=== PATIENT | female | born 1985 | race Caucasian/White ===

== ENCOUNTER 2016-09-17 06:42 | Inpatient (IN) | payer OTHER ==
--- NOTE | 2016-09-17 06:57 | ERNOTE ---
<Susan Bernstein - Last Filed: 09/17/16 07:54> Abdominal HPI - Narrative Date of Service: 09/17/16 - General Chief Complaint: Abdominal Pain Time Seen by Provider: 09/17/16 06:56 Source: patient Exam Limitations: no limitations - Immun/Allergies/Home Medications Immunizatons: IMMUNIZATION HX Immunizations Up to Date Yes History of Influenza Vaccine No Allergies/Adverse Reactions: Allergies metoclopramide [From Reglan] Allergy (Severe, Verified 09/17/16 06:50) Other - History of Present Illness Narrative: Here for left flank pain for 8 hours. also has had nausea and vomiting. Has not taken any meds. also feels nauseated. Denies fevers, chills or dysuria Timing: constant, getting worse Review of Systems - Review of Systems Constitutional: Present: no symptoms reported EYE: Present: no symptoms reported ENT: Present: no symptoms reported Respiratory: Present: no symptoms reported Cardiology: Present: no symptoms reported Gastrointestinal/Abdominal: Present: See HPI Genitourinary: Present: See HPI Musculoskeletal: Present: See HPI - Patient's Past Medical History Patient History - Surgical Procedures: - Social History Smoking Status: Current every day smoker Have you smoked in the past 12 months: Yes - Immunizations Immunizations Up to Date: Yes History of Influenza Vaccine: No Physical Exam - Physical Exam General Appearance: Present: wd/wn, alert, moderate distress - secondary to pain Eye Exam: Normal inspection: bilateral, PERRL: bilateral, EOMI: bilateral Ears, Nose, Throat: Present: normal ENT inspection Neck: Present: normal inspection, nontender, supple Respiratory: Present: no respiratory distress, normal breath sounds, chest nontender, lungs clear Cardiovascular/Chest: Present: regular rate, rhythm, no murmur Back Exam: Present: normal inspection, CVA tenderness (L) Neurological Exam: Present: alert, oriented, normal mood/affect, no motor/ sensory deficits Skin Exam: Present: normal color, warm/dry ED Progress - Vital Signs Vital Signs: Vital Signs 09/17/16 06:47 Temperature 36.9 C Pulse Rate 76 Respiratory 16 Rate Blood Pressure 118/84 O2 Sat by Pulse 97 Oximetry - Progress/Reassessment Chief Complaint: Abdominal Pain - Transfer of Care Physician Sign Out: Susan Bernstein Receiving Physician: Karson Quintana Pending Results: CT/MRI results, Labs Departure - Departure Clinical Impression: Flank pain, Pancreatitis Disposition: [facility] Condition: Fair <Karson Quintana - Last Filed: 09/17/16 08:53> Abdominal HPI - Immun/Allergies/Home Medications Immunizatons: IMMUNIZATION HX Immunizations Up to Date Yes History of Influenza Vaccine No ED Progress - Results and Orders Patient's Lab Results:: I have reviewed the patient's lab results. - Vital Signs Patient's Vital Signs:: I have reviewed the patient's vital signs. Vital Signs: Vital Signs 09/17/16 09/17/16 09/17/16 06:47 07:38 08:27 Temperature 36.9 C Pulse Rate 76 57 L 52 L Respiratory 16 20 16 Rate Blood Pressure 118/84 127/81 107/53 O2 Sat by Pulse 97 98 100 Oximetry - CT/Ultrasound CT/Ultrasound Narrative: I reviewed CT report, pancreatitis. D/W Hospitalist who will admit. Lab is diluting her lipase.
[2016-09-17] MEDS ORDERED: ONDANSETRON HCL/PF 2 MG/ML VIAL IV ONE (06:58)
[2016-09-17] MEDS ORDERED: HYDROmorphone HCL 1 MG/ML DISP.SYRIN IV ONE ×3 (06:58→09:04)
[2016-09-17] MEDS ORDERED: HYDROmorphone HCL 1 MG/ML DISP.SYRIN ONE ×3 (07:03→09:07)
[2016-09-17] MEDS ORDERED: ONDANSETRON HCL/PF 2 MG/ML VIAL ONE (07:03)
[2016-09-17] MEDS ORDERED: NORMAL SALINE 1,000 ML IV ONE ×2 (07:07→08:51)
[2016-09-17 07:13] LABS: Hemoglobin 14.3 gm/dL (12.5-16.0); Mean Cell Volume 90.1 fl (78-100); Mean Corpuscular Hemoglobin 31.4 pg (27-31); Mean Corpuscular Hgb Conc 34.9 g/dl (32-36); Mean Platelet Volume 10.4 fl (6.0-9.5); Neutrophil # 6.4 K/mm3 (1.3-6.0); Neutrophil % 66.2 % (42-75.0); Platelet Count 233 K/mm3 (150-450); Red Blood Count 4.55 M/mm3 (4.2-5.4); Red Cell Distribution Width 12.4 % (11.5-14.0); White Blood Count 9.7 K/mm3 (4.0-10.5)
[2016-09-17 07:27] LABS: Albumin * 3.7 gm/dl (3.4-5.0); Anion Gap 12.3 mmol/L (6.8-13.8); Bilirubin, Total 0.4 mg/dL (0.0-1.1); Calcium * 9.1 mg/dL (7.9-10.9); Potassium 4.3 mmol/L (3.4-4.6); Total Protein 7.2 gm/dL (6.2-8.2)
[2016-09-17] MEDS ORDERED: KETOROLAC TROMETHAMINE 30 MG/ML VIAL IV ONE (07:40)
[2016-09-17] MEDS ORDERED: KETOROLAC TROMETHAMINE 30 MG/ML VIAL ONE (07:44)
[2016-09-17 08:41] LABS: Amylase * 456 U/L (25-115)
[2016-09-17 08:55] LABS: Lipase 4134 U/L (73-393)
--- OUTSIDE RECORDS SUMMARY | 2016-09-17 09:02 | XMS REPORT | Continuity of Care Document ---
:1985 Author Organization [facility] ([facility]) Address [address] [place] [address] Phone [phone] Care Team Providers Name Role Phone Provider, No-Primary Care Primary Care Provider Unavailable Source Comments This disclosure is being made pursuant to the Care Everywhere program, applicable federal and state laws, and may not contain all informaitonavailable regarding this patient.[facility] ([facility]) Active Allergies and Adverse Reactions Allergen Noted Date Severity Reactions Comments Metoclopramide OTHER dystonic reaction - Aka - Reglan Current Medications Prescription Sig. Disp. Refills Start Date End Date Status VITS Take 1 Tab by mouth Active W-CA,FE,FA,<1MG, daily. ( VITAMIN PO) norethindrone Take 1 Tab by mouth 84 Tab 4 10/21/2012 Active (NOR-Q.D.) 0.35 mg daily. Indications: tablet CONTRACEPTION Active Problems Problem Noted Date Migraine 03/12/2013 Morbid obesity- growth scans q 4wks 10/13/2012 Hx of section 10/02/2012 Overview: - Emergent C/S at 29 weeks for NRFS - Plans for TOLAC this . Consent signed at 28 week appointment. Ankle edema - moderate but not extending cephalad 09/05/2012 Overview: - Compression stockings recommended. - Patient experienced this in last Gestational hypertension 09/05/2012 Overview: - Need to rule out pre-eclampsia given elevated BP, new onset proteinuria per urine dip, nausea/epigastric pain at 31 wks - off to LDR for serial BPs, 24 hour urine collection, monitoring - Patient states BPs never elevated outside of . Elevated BPs on and 07/28/12 - Repeat HELLP labs wnl 09/05, repeat 24-hour urine returned 09/07 and was 50 mg but total volume only 450 mL. - Growth scan from 28 weeks with EFW 1202 g (40%ile). q4 week growth scans given morbid obesity/ gHTN Resolved Problems Problem Noted Date Resolved Date S/P repeat low transverse section 10/18/2012 10/24/2012 Preeclampsia, severe 10/17/2012 10/24/2012 Decreased movement- at 31 wks. Bedside doppler 131bpm. 10/13/201210/17 Overview: NST performed in clinic- results pending Hx of severe pre-eclampsia, oligohydramnios in previous 06/01/2012 10/24/2012 Overview: -PLTCS at 29wks -Pt leaning toward . Counseled regarding risks. Consent to be signed at 28 weeks. Headaches with visual changes 06/01/2012 09/05/2012 Overview: -Previous migraines -Outpatient neurology consult made but patient no-showed -Rx for phenergan 06/01/2011 -ACEVEDO's improved at 16 week visit. Pt thinks may be due to old vision prescription. To see eye doctor locally. 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/01/2012 Overview: Treated with Zoloft - increased 04/27/2010 to 100mg/day Severe preeclampsia, IUGR, oligohydramnios, intermittent AEDF 02/23/2010 11/26/2009 04/28/2010 Rh negative status during 11/26/2009 04/28/2010 Cervicalgia 07/07/2007 11/26/2009 Abdominal pain, unspecified site 03/08/2006 11/26/2009 Sprain of ankle, unspecified site 02/22/2005 11/26/2009 Immunizations Name Dates Previously Given Next Due Rho (D) Immune Globulin, IM (Rhogam) 10/17/2012,09/28/2012,02/09/2010 Tdap 09/28/2012 Social History Tobacco Use Types Packs/Day Years Used Date Former Smoker 0.5 4 Smokeless Tobacco: Never Used Tobacco Cessation:Counseling Given: Yes Comments:1/2 ppd Alcohol Use Drinks/Week oz/Week Comments No last drink about 1 month ago Last Filed Vital Signs Vital Sign Reading Time Taken Blood Pressure 106/78 03/12/2013 2:45 PM CDT Pulse 92 03/12/2013 2:45 PM CDT Temperature 36.9 C (98.4 F) 03/12/2013 2:45 PM CDT Respiratory Rate 16 03/12/2013 2:45 PM CDT Height 1.74 m (5' 8.5") 03/12/2013 2:45 PM CDT Weight 114.715 kg (252 lb 14.4 oz) 03/12/2013 2:45 PM CDT Body Mass Index 37.89 03/12/2013 2:45 PM CDT Oxygen Saturation 97% 10/18/2012 8:46 PM CDT Plan of Care Health Maintenance Due Date Last Done Comments Hepatitis B Vaccine (1 of 3 - Primary 1987 Series) Lipid Disorder Screening 2005 MMR Vaccine 2005 Cervical Cancer Screening 12/09/2015 12/08/2012, 09/24/2009 Influenza Vaccine: Seasonal (#1) 12/15/2015 Td Vaccine 09/28/2022 09/28/2012 Tdap Vaccine Completed 09/28/2012 Results from Last 3 Months Not on file
--- OUTSIDE RECORDS SUMMARY | 2016-09-17 09:03 | XMS REPORT | Continuity of Care Document ---
:1985 Author Organization [facility] ([facility]) Address [address] [place] [address] Phone [phone] Care Team Providers Name Role Phone Provider, No-Primary Care Primary Care Provider Unavailable Source Comments This disclosure is being made pursuant to the Care Everywhere program, applicable federal and state laws, and may not contain all informaitonavailable regarding this patient.[facility] ([facility]) Active Allergies and Adverse Reactions Allergen [...]
[2016-09-17] MEDS: ONDANSETRON HCL/PF 2 MG/ML VIAL IV PRN ×2 (09:34→15:04)
[2016-09-17] MEDS: NORMAL SALINE 1,000 ML IV PRN ×4 (10:29→22:45)
[2016-09-17] MEDS: HYDROmorphone HCL 1 MG/ML DISP.SYRIN IV PRN ×7 (10:31→22:53)
[2016-09-17] MEDS ORDERED: PROMETHAZINE HCL 25 MG in DEXTROSE 5 % IN WATER 50 ML IV PRN ×2 (11:43)
[2016-09-17] MEDS ORDERED: PROMETHAZINE HCL 25 MG in DEXTROSE 5 % IN WATER 50 ML IV ONE ×2 (12:00)
[2016-09-17 14:39] LABS: Urine Bilirubin Negative (NEGATIVE); Urine Blood Negative /ul (NEGATIVE); Urine Ketone Negative (NEGATIVE); Urine Nitrite Negative (NEGATIVE); Urine Protein Negative (NEGATIVE); Urine Specific Gravity >=1.030 SP.GR. (1.005-1.010); Urine Urobilinogen Normal (NORMAL)
[2016-09-17 14:40] LABS: Urine Appearance Clear; Urine Bacteria None Seen; Urine Color Yellow; Urine RBC None Seen /hpf (0-5); Urine WBC None Seen /hpf (0-5)
[2016-09-17 14:46] LABS: Cocaine Ur Negative (NEGATIVE); Urine Barbiturate Negative (NEGATIVE); Urine Benzodiazepines Negative (NEGATIVE); Urine PCP Negative (NEGATIVE); Urine THC Negative (NEGATIVE)
[2016-09-17 14:50] LABS: Urine Opiates Positive (NEGATIVE)
--- NOTE | 2016-09-17 21:09 | HP ---
Chief Complaint - Chief Complaint Date of Service: 09/17/16 Time of Service: 13:01 Chief Complaint: abdominal pain, acute pancreatitis History of Present Illness: Oksana is a 31 year old female patient of Dr Stevenson with a PMH of depression who presented to the ER with c/o abdominal pain since 10 pm last night. Patient states abdominal pain woke her up from sleep at 10 pm at again at 4:30 am. Pain better when sitting up. denies fever. intermittent nausea. no vomiting. no diarrhea. no recent URI. denies any history past or current significant etoh use. denies any elicit drug use, however UDS positive for amphedamines. patient's mother also states that patient has lost a lot of weight recently and that this has occurred very quickly. Patient previously saw Dr stevenson on 08/17/16 for depression and was started on effexor. denies any family history of pancreatits. denies any history of autoimmune disease. + history of cholecystectomy. ER workup revealed elevated amylase and significantly elevated lipase. CT scan of the abdomen confirmed acute pancreatitis. Patient to be admitted for IV fluids, pain managment and acute pancreatitis. - Patient's Past Medical History Patient History - Medical: Depression Patient History - Cardiac/Respiratory: No pertinent hx Patient History - Cancer: No Hx of Cancer Patient History - Surgical Procedures: Patient History - Other: None LMP (females 10-50): last week LMP (Calendar): 08/31/16 - Family History Mother Family History - Medical: Anemia, Depression, Hypothyroidism Family History - Cardiac/Respiratory: No pertinent hx Family History - Cancer: No pertinent family hx Father Family History - Medical: Diabetes Type 2 Family History - Cardiac/Respiratory: No pertinent hx Family History - Cancer: No pertinent family hx - Social History Living Situations: spouse Abuse History: No History of abuse Psych History: Hx of Depression Smoking Status: Current every day smoker Have you smoked in the past 12 months: Yes Do you dip or chew tobacco: No Patient requests Smoking Cessation Consult: No Initiate information on Smoking Cessation: No Alcohol Use: rarely Drug Use: none - Immunizations Immunizations Up to Date: Yes History of Influenza Vaccine: No Review Of Systems (GEN) - Review of Systems Generalized/Overall Review: Present: No Symptoms Reported EENTM: Present: No Symptoms Reported Respiratory: Present: No Symptoms Reported Cardiac: Present: No Symptoms Reported Abdominal: Present: Nausea, Abdominal Pain. Absent: Vomiting, Constipation, Diarrhea, Bright blood from rectum Genitourinary: Present: No Symptoms Reported Musculoskeletal: Present: No Symptoms Reported Neurological: Present: No Symptoms Reported Skin: Present: No Symptoms Reported Endocrine: Present: No Symptoms Reported Misc: All systems neg except as marked Allergies/Adverse Reactions: Allergies Allergy/AdvReac Type Severity Reaction Status Date / Time metoclopramide [From Reglan] Allergy Severe Other Verified 09/17/16 06:50 venlafaxine [From Effexor] Allergy Severe Other Verified 09/17/16 17:05 Home Medications: HOME MEDICATIONS Acetaminophen [Tylenol] 1,000 mg PO PRN PRN 09/17/16 [Last Taken Unknown] Ibuprofen [Motrin] 800 mg PO PRN PRN 09/17/16 [Last Taken Unknown] Venlafaxine HCl [Effexor] 75 mg PO DAILY 09/17/16 [Last Taken 09/16/16] Exam - Exam Vital Signs: Vital Signs - Last Taken Temp 36.7 C 09/17/16 19:00 Pulse 68 09/17/16 19:00 Resp 16 09/17/16 19:00 BP 124/73 09/17/16 19:00 Pulse Ox 98 09/17/16 19:00 Constitutional: Present: Alert, Oriented x3, Cooperative, Mild distress ENT Exam: Present: hearing grossly normal Eye Exam: bilateral eye: normal inspection Neck: Present: full range of motion, supple Back Exam: Present: no vertebral tenderness Breasts: Present: Exam deferred Respiratory: Present: chest non-tender, lungs clear, normal breath sounds, no accessory muscle use Cardiovascular/Chest: Present: normal peripheral pulses, regular rate, rhythm, no chest tenderness, no JVD Peripheral Pulses: dorsalis-pedis (R): 2+, dorsalis-pedis (L): 2+, radial (R): 2 +, radial (L): 2+ Abdomen: Present: Normal bowel sounds, tender - diffuse abdominal tenderness to palpation but pain gets significantly worse in the epigastric region., guarding /Rectal: Present: Exam deferred Extremity: Present: non-tender, normal inspection, no pedal edema Skin Exam: Present: normal color, warm/dry, no cyanosis Neurologic: Present: alert, oriented x 3 Diagnostic Studies: Abnormal Lab Results 09/17/16 Range/Units 14:25 Urine Opiates Screen Positive H (NEGATIVE) Urine Amphetamine Positive H (NEGATIVE) Laboratory Results WBC 9.7 K/mm3 (4.0-10.5) 09/17/16 07:02 RBC 4.55 M/mm3 (4.2-5.4) 09/17/16 07:02 Hgb 14.3 gm/dL (12.5-16.0) 09/17/16 07:02 Hct 41.0 % (37.0-47.0) 09/17/16 07:02 MCV 90.1 fl (78-100) 09/17/16 07:02 MCH 31.4 pg (27-31) H 09/17/16 07:02 MCHC 34.9 g/dl (32-36) 09/17/16 07:02 RDW 12.4 % (11.5-14.0) 09/17/16 07:02 Plt Count 233 K/mm3 (150-450) 09/17/16 07:02 MPV 10.4 fl (6.0-9.5) H 09/17/16 07:02 Immature Gran % (Auto) 0.20 % (0.001-0.429) 09/17/16 07:02 Immature Gran # (Auto) 0.02 K/mm3 (0.000-0.0310) 09/17/16 07:02 Neutrophils % 66.2 % (42-75.0) 09/17/16 07:02 Lymphocytes % 24.9 % (20-51) 09/17/16 07:02 Monocytes % 5.8 % (0.0-9) 09/17/16 07:02 Eosinophils % 2.4 % (0.0-3.0) 09/17/16 07:02 Basophils % 0.5 % (0.0-1.0) 09/17/16 07:02 Nucleated RBC % 0.0 k/mm3 (0-1) 09/17/16 07:02 Neutrophils # 6.4 K/mm3 (1.3-6.0) H 09/17/16 07:02 Lymphocytes # 2.4 k/mm3 (1.5-3.5) 09/17/16 07:02 Monocytes # 0.6 k/mm3 (0.0-1.0) 09/17/16 07:02 Eosinophils # 0.2 k/mm3 (0.0-0.7) 09/17/16 07:02 Absolute Basophils 0.1 k/mm3 (0.0-0.1) 09/17/16 07:02 Sodium 140 mmol/L (132-142) 09/17/16 07:02 Plasma Sodium 140 mmol/L (130-142) 09/17/16 07:02 Potassium 4.3 mmol/L (3.4-4.6) 09/17/16 07:02 Chloride 104 mmol/L (97-106) 09/17/16 07:02 Carbon Dioxide 28.0 mmol/L (24-32.6) 09/17/16 07:02 Anion Gap 12.3 mmol/L (6.8-13.8) 09/17/16 07:02 BUN 17 mg/dL (3-23) 09/17/16 07:02 Creatinine 0.81 mg/dL (0.4-1.4) 09/17/16 07:02 Est GFR (Non-Af Amer) 89 mL/min (60-130) 09/17/16 07:02 BUN/Creatinine Ratio 21.0 (9.0-21.6) 09/17/16 07:02 Random Glucose 113 mg/dL (70-110) H 09/17/16 07:02 Calcium 9.1 mg/dL (7.9-10.9) 09/17/16 07:02 Calcium Adj for Albumin 9.0 mg/dL (8.4-10.2) 09/17/16 07:02 Total Bilirubin 0.4 mg/dL (0.0-1.1) 09/17/16 07:02 AST 18 U/L (0-48) 09/17/16 07:02 ALT 21 U/L (19-67) 09/17/16 07:02 Alkaline Phosphatase 64 U/L (50-170) 09/17/16 07:02 Total Protein 7.2 gm/dL (6.2-8.2) 09/17/16 07:02 Albumin 3.7 gm/dl (3.4-5.0) 09/17/16 07:02 Triglycerides 42 mg/dL (30-200) 09/17/16 07:02 Cholesterol 156 mg/dL (0-200) 09/17/16 07:02 LDL Cholesterol 72 mg/dL (70-130) 09/17/16 07:02 VLDL Cholesterol 8 mg/dL (5-40) 09/17/16 07:02 HDL Cholesterol 76 mg/dL (40-60) H 09/17/16 07:02 Cholesterol/HDL Ratio 2.0 mg/dL (3.3-4.4) L 09/17/16 07:02 Amylase 456 U/L (25-115) H 09/17/16 07:02 Lipase 4134 U/L (73-393) H 09/17/16 07:02 Serum HCG, Qual Negative (NEGATIVE) 09/17/16 07:02 Urine Color Yellow 09/17/16 14:25 Urine Appearance Clear 09/17/16 14:25 Urine pH 6.0 pH (5.0-7.0) 09/17/16 14:25 Ur Specific [place] >=1.030 SP.GR. (1.005-1.010) 09/17/16 14:25 Urine Protein Negative mg/dL (NEGATIVE) 09/17/16 14:25 Urine Glucose (UA) Negative mg/dL (NEGATIVE) 09/17/16 14:25 Urine Ketones Negative mg/dL (NEGATIVE) 09/17/16 14:25 Urine Blood Negative /ul (NEGATIVE) 09/17/16 14:25 Urine Nitrate Negative (NEGATIVE) 09/17/16 14:25 Urine Bilirubin Negative mg/dl (NEGATIVE) 09/17/16 14:25 Urine Urobilinogen Normal EU/dl (NORMAL) 09/17/16 14:25 Ur Leukocyte Esterase Negative /ul (NEGATIVE) 09/17/16 14:25 Urine RBC None seen /hpf (0-5) 09/17/16 14:25 Urine WBC None seen /hpf (0-5) 09/17/16 14:25 Ur Epithelial Cells 0-5 /hpf (0-5) 09/17/16 14:25 Urine Bacteria None seen (NONE) 09/17/16 14:25 Urine Culture Comments No culture indicated 09/17/16 14:25 Urine Opiates Screen Positive (NEGATIVE) H 09/17/16 14:25 Barbiturate Screen Negative (NEGATIVE) 09/17/16 14:25 Ur Phencyclidine Scrn Negative (NEGATIVE) 09/17/16 14:25 Urine Amphetamine Positive (NEGATIVE) H 09/17/16 14:25 U Benzodiazepines Scrn Negative (NEGATIVE) 09/17/16 14:25 Urine Cocaine Screen Negative (NEGATIVE) 09/17/16 14:25 Urine Marijuana (THC) Negative (NEGATIVE) 09/17/16 14:25 Ethyl Alcohol Less than 3.0 mg/dL (0.0-10.0) 09/17/16 17:03 Assessment/Plan - Narrative Narrative: Pancreatitis - likely drug induced - ? from effexor vs amphetamine use - no congenital abnormality noted on ct - no significant etoh history or current use - add triglycerides to lab - aggressive iv fluids - NS iv at 250 ml per hour overnight - will decrease in am if enzymes are down. - NPO until enzymes are normal. - IV pain medication with IV anti-enemic meds as needed. - check labs in the am. depression - recently started on effexor on 08/17/16 - d/c as pancreatits is a side effect of this medication. - patient will need another anti-depressant started in the future. - Assessment/Plan (1) Pancreatitis Problem: Acute Qualifiers: Chronicity: acute Pancreatitis type: drug induced Acute pancreatitis complication: no infection or necrosis Qualified Code(s): K85.30 - Drug induced acute pancreatitis without necrosis or infection (2) Depression Problem: Chronic Qualifiers: Depression Type: major depressive disorder Major depression recurrence: recurrent Active/Remission status: currently active Major depression episode severity: unspecified Qualified Code(s): F33.9 - Major depressive disorder, recurrent, unspecified
[2016-09-18] MEDS: HYDROmorphone HCL 1 MG/ML DISP.SYRIN IV PRN ×7 (02:00→23:27)
[2016-09-18] MEDS: NORMAL SALINE 1,000 ML IV PRN ×4 (03:48→23:25)
[2016-09-18 05:37] LABS: Hematocrit 33.3 % (37.0-47.0); Hemoglobin 11.3 gm/dL (12.5-16.0); Mean Cell Volume 90.7 fl (78-100); Mean Corpuscular Hemoglobin 30.8 pg (27-31); Mean Corpuscular Hgb Conc 33.9 g/dl (32-36); Mean Platelet Volume 10.8 fl (6.0-9.5); Neutrophil # 8.1 K/mm3 (1.3-6.0); Neutrophil % 82.6 % (42-75.0); Platelet Count 143 K/mm3 (150-450); Red Blood Count 3.67 M/mm3 (4.2-5.4); Red Cell Distribution Width 12.3 % (11.5-14.0); White Blood Count 9.9 K/mm3 (4.0-10.5)
[2016-09-18 05:45] LABS: Amylase * 190 U/L (25-115); Lipase 1091 U/L (73-393)
[2016-09-18] MEDS: ENOXAPARIN SODIUM 40 MG/0.4 ML SYRG SC SCH (09:16)
--- NOTE | 2016-09-18 09:55 | PN ---
Subjective - Date and Time Seen Date: 09/18/16 Time: 09:50 Subjective Narrative: Still with abdominal pain but improved from admission. Denies N/V. Objective - Review of Systems Generalized/Overall Review: Denies: Chills, Fever EENTM: Denies: No Symptoms Reported Respiratory: Denies: Cough, Shortness of Breath Cardiac: Denies: Chest Pain, Edema, Palpitations Abdominal: Reports: Abdominal Pain. Denies: Nausea, Vomiting Genitourinary Symptoms: Denies: Urgency, Frequency Musculoskeletal Complaints: Denies: Joint Pain - Vitals Vitals: Last Vital Signs Temp 37.2 C 09/18/16 07:46 Pulse 82 09/18/16 07:46 Resp 18 09/18/16 07:46 BP 121/68 09/18/16 07:46 Pulse Ox 96 09/18/16 07:46 - Abnormal Lab Findings Abnormal Lab Findings: Abnormal Lab Results 09/17/16 09/18/16 09/18/16 Range/Units 14:25 05:30 05:30 RBC 3.67 L (4.2-5.4) M/mm3 Hgb 11.3 L (12.5-16.0) gm/dL Hct 33.3 L (37.0-47.0) % Plt Count 143 L (150-450) K/mm3 MPV 10.8 H (6.0-9.5) fl Immature Gran # (Auto) 0.04 H (0.000-0.0310) K/mm3 Neutrophils % 82.6 H (42-75.0) % Lymphocytes % 10.1 L (20-51) % Neutrophils # 8.1 H (1.3-6.0) K/mm3 Lymphocytes # 1.0 L (1.5-3.5) k/mm3 Amylase 190 H (25-115) U/L Lipase 1091 H (73-393) U/L Urine Opiates Screen Positive H (NEGATIVE) Urine Amphetamine Positive H (NEGATIVE) - Exam Constitutional: Present: Alert, Oriented x3, Cooperative ENT Exam: Present: hearing grossly normal Neck: Present: supple Breasts: Present: Exam deferred Respiratory: Present: normal breath sounds, No rales, No wheezing Cardiovascular/Chest: Present: regular rate, rhythm, no JVD, no murmur Abdomen: Present: Normal bowel sounds, nondistended, tender, hypoactive Extremity: Present: no pedal edema, no calf tenderness Assessment/Plan - Problems/Diagnosis (1) Pancreatitis Problem: Acute Qualifiers: Chronicity: acute Pancreatitis type: drug induced Acute pancreatitis complication: no infection or necrosis Qualified Code(s): K85.30 - Drug induced acute pancreatitis without necrosis or infection Narrative: likely drug induced- Effexor. No GB, denies alcohol except occasionally, TG WNL , no pancreas divisum on CTS. (2) Depression Problem: Chronic Qualifiers: Depression Type: major depressive disorder Major depression recurrence: recurrent Active/Remission status: currently active Major depression episode severity: unspecified Qualified Code(s): F33.9 - Major depressive disorder, recurrent, unspecified Narrative: Effexor d/c. Will leave up to PCP to start her on a new one.
[2016-09-19] MEDS: HYDROmorphone HCL 1 MG/ML DISP.SYRIN IV PRN ×8 (02:08→23:04)
[2016-09-19] MEDS: NORMAL SALINE 1,000 ML IV PRN ×2 (06:14→14:51)
[2016-09-19 08:30] LABS: Hematocrit 31.1 % (37.0-47.0); Hemoglobin 10.6 gm/dL (12.5-16.0); Mean Cell Volume 89.9 fl (78-100); Mean Corpuscular Hemoglobin 30.6 pg (27-31); Mean Corpuscular Hgb Conc 34.1 g/dl (32-36); Neutrophil # 9.7 K/mm3 (1.3-6.0); Neutrophil % 81.7 % (42-75.0); Platelet Count 142 K/mm3 (150-450); Red Blood Count 3.46 M/mm3 (4.2-5.4); Red Cell Distribution Width 12.2 % (11.5-14.0); White Blood Count 11.9 K/mm3 (4.0-10.5)
[2016-09-19 08:40] LABS: Amylase * 87 U/L (25-115); Lipase 272 U/L (73-393)
[2016-09-19] MEDS: ENOXAPARIN SODIUM 40 MG/0.4 ML SYRG SC SCH (08:58)
[2016-09-19] MEDS ORDERED: ACETAMINOPHEN 325 MG TABLET PO PRN (09:04)
--- NOTE | 2016-09-19 09:15 | PN ---
Subjective - Date and Time Seen Date: 09/19/16 Time: 09:12 Subjective Narrative: Feels better. No abdominal pain. Positive ACEVEDO. Objective - Review of Systems Generalized/Overall Review: Denies: Weakness, Chills, Fever EENTM: Reports: No Symptoms Reported Respiratory: Denies: Cough, Shortness of Breath Cardiac: Denies: Chest Pain, Palpitations Abdominal: Denies: Nausea, Vomiting, Abdominal Pain Genitourinary Symptoms: Denies: Urgency, Frequency Musculoskeletal Complaints: Denies: Joint Pain Neurological: Reports: Headache - Vitals Vitals: Last Vital Signs Temp 37 C 09/19/16 07:00 Pulse 95 09/19/16 07:00 Resp 16 09/19/16 07:00 BP 103/54 09/19/16 07:00 Pulse Ox 98 09/19/16 07:00 - Abnormal Lab Findings Abnormal Lab Findings: Abnormal Lab Results 09/19/16 Range/Units 08:12 WBC 11.9 H D (4.0-10.5) K/mm3 RBC 3.46 L (4.2-5.4) M/mm3 Hgb 10.6 L (12.5-16.0) gm/dL Hct 31.1 L (37.0-47.0) % Plt Count 142 L (150-450) K/mm3 MPV 10.0 H (6.0-9.5) fl Immature Gran % (Auto) 0.70 H (0.001-0.429) % Immature Gran # (Auto) 0.08 H (0.000-0.0310) K/mm3 Neutrophils % 81.7 H (42-75.0) % Lymphocytes % 9.4 L (20-51) % Neutrophils # 9.7 H (1.3-6.0) K/mm3 Lymphocytes # 1.1 L (1.5-3.5) k/mm3 - Exam Constitutional: Present: Alert, Oriented x3, Cooperative ENT Exam: Present: hearing grossly normal Neck: Present: supple Breasts: Present: Exam deferred Respiratory: Present: normal breath sounds, No rales, No wheezing Cardiovascular/Chest: Present: regular rate, rhythm, no JVD, no murmur Abdomen: Present: soft, nontender, nondistended, hypoactive Extremity: Present: no pedal edema, no calf tenderness Assessment/Plan - Problems/Diagnosis (1) Pancreatitis Problem: Acute Qualifiers: Chronicity: acute Pancreatitis type: drug induced Acute pancreatitis complication: no infection or necrosis Qualified Code(s): K85.30 - Drug induced acute pancreatitis without necrosis or infection Narrative: clinically resolving. Amylase/lipase back to normal. start clear liquids and progress to full liquids. possible d/c in a.m. (2) Depression Problem: Chronic Qualifiers: Depression Type: major depressive disorder Major depression recurrence: recurrent Active/Remission status: currently active Major depression episode severity: unspecified Qualified Code(s): F33.9 - Major depressive disorder, recurrent, unspecified (3) Headache Problem: Acute Qualifiers: Headache type: unspecified Headache chronicity pattern: acute headache Intractability: not intractable Qualified Code(s): R51 - Headache Narrative: Tylenol PRN.
[2016-09-20] MEDS: NORMAL SALINE 1,000 ML IV PRN (00:29)
[2016-09-20] MEDS: HYDROmorphone HCL 1 MG/ML DISP.SYRIN IV PRN (03:30)
[2016-09-20 06:14] LABS: Hematocrit 30.4 % (37.0-47.0); Hemoglobin 10.5 gm/dL (12.5-16.0); Mean Cell Volume 89.9 fl (78-100); Mean Corpuscular Hemoglobin 31.1 pg (27-31); Mean Corpuscular Hgb Conc 34.5 g/dl (32-36); Mean Platelet Volume 10.8 fl (6.0-9.5); Neutrophil # 5.1 K/mm3 (1.3-6.0); Neutrophil % 73.7 % (42-75.0); Platelet Count 148 K/mm3 (150-450); Red Blood Count 3.38 M/mm3 (4.2-5.4); Red Cell Distribution Width 12.2 % (11.5-14.0)
[2016-09-20 07:07] LABS: Anion Gap 11.8 mmol/L (6.8-13.8); BUN/Creatinine Ratio 3.2 (9.0-21.6); Calcium * 8.5 mg/dL (7.9-10.9); Carbon Dioxide 26.3 mmol/L (24-32.6); Estimated Creat Clear 139.9; Potassium 3.1 mmol/L (3.4-4.6)
[2016-09-20 07:22] VITALS: BP 124/82
[2016-09-20] MEDS ORDERED: oxyCODONE HCL/ACETAMINOPHEN 1 TAB TABLET PO PRN (07:48)
--- NOTE | 2016-09-20 09:20 | DS ---
(1) Pancreatitis Problem: Acute Qualifiers: Chronicity: acute Pancreatitis type: drug induced Acute pancreatitis complication: no infection or necrosis Qualified Code(s): K85.30 - Drug induced acute pancreatitis without necrosis or infection (2) Depression Problem: Chronic Qualifiers: Depression Type: major depressive disorder Major depression recurrence: recurrent Active/Remission status: currently active Major depression episode severity: unspecified Qualified Code(s): F33.9 - Major depressive disorder, recurrent, unspecified Description of Stay: date of admission: 09/17/16 date of discharge: 09/20/16 description of stay: Oksana is a 31 year old female who presented to the er with c/o abdominal pain. ct c/w acute pancreatits. hx past cholecystectomy. started on effexor 4 weeks ago. UDS + amphetamines. started on IV Fluids and IV pain meds. effexor stopped. started on clear liquid diet once amylase and lipase wnl. progressed to full liquid diet and then to regular diet on the day of discharge. pancreatitis likely due induced. pt changed to zoloft per dr stevenson at discharge. follow up with pcp in 3-4 weeks. stable enough for discharge on 09/20/16. Procedures Performed: none Discharge Disposition: Home self care Disposition: Home self-care Condition: Undetermined Discharge Activity: Activity as tolerated Discharge Diet: General/regular food Referrals: Jose Stevenson DO [Primary Care Provider] - Problem Oriented Discharge Instructions to Patient/Family: Acute Pancreatitis, [id number] Additional Patient Instructions (free text): push water. Stop effexor. New medication: - zoloft 50 mg daily Follow up with primary care physician in 2-3 weeks. 10/04 at 10:00 Prescriptions (Any new or edited meds): Sertraline HCl [Zoloft] 50 mg PO DAILY #30 tab oxyCODONE HCL/ACETAMINOPHEN [Percocet 5 MG/325 MG] 1 tab PO Q6H PRN #20 tablet PRN Reason: Pain Complete Home Medications List: Complete Home Medication List: Acetaminophen [Tylenol] 1,000 mg PO PRN PRN 09/17/16 Ibuprofen [Motrin] 800 mg PO PRN PRN 09/17/16 Sertraline HCl [Zoloft] 50 mg PO DAILY #30 tab 09/20/16 oxyCODONE HCL/ACETAMINOPHEN [Percocet 5 MG/325 MG] 1 tab PO Q6H PRN #20 tablet 09/20/16 oxyCODONE HCL/ACETAMINOPHEN [Percocet 5 MG/325 MG] 1 tab PO Q6H PRN #40 tablet 09/21/16
[2016-09-20] MEDS: ENOXAPARIN SODIUM 40 MG/0.4 ML SYRG SC SCH (09:52)
== END 2016-09-20 11:16 | disposition home or self-care (01) | DRG 439 ==
LOC: ER 06:42 → OBSVTOIN 08:58 → MS 08:58
PROVIDERS: ADMIT Nurse Practitioner Critical Care Medicine; ATTEND Family Medicine
DX: K85.30 Drug induced acute pancreatitis without necrosis or infection (principal); F33.9 Major depressive disorder, recurrent, unspecified; R51 Headache; T43.215A Adverse effect of selective serotonin and norepinephrine reuptake inhibitors, initial encounter; F17.210 Nicotine dependence, cigarettes, uncomplicated
CPT/HCPCS: 36415; 74176; 80048; 80053; 80061; 80307; 81001; 82150; 83690; 84703; 85025; 96374; 96375; 99284; G0481

== ENCOUNTER 2016-09-20 16:23 | Observation (INO) | payer OTHER ==
[2016-09-20] MEDS ORDERED: ONDANSETRON HCL/PF 2 MG/ML VIAL IV ONE ×2 (16:42→18:29)
[2016-09-20] MEDS ORDERED: NORMAL SALINE 1,000 ML IV ONE (16:42)
[2016-09-20] MEDS ORDERED: ONDANSETRON HCL/PF 2 MG/ML VIAL ONE ×2 (16:49→18:30)
[2016-09-20 16:58] LABS: Hematocrit 30.3 % (37.0-47.0); Hemoglobin 10.7 gm/dL (12.5-16.0); Mean Cell Volume 88.6 fl (78-100); Mean Corpuscular Hemoglobin 31.3 pg (27-31); Mean Corpuscular Hgb Conc 35.3 g/dl (32-36); Mean Platelet Volume 10.4 fl (6.0-9.5); Neutrophil # 5.7 K/mm3 (1.3-6.0); Neutrophil % 75.2 % (42-75.0); Platelet Count 167 K/mm3 (150-450); Red Blood Count 3.42 M/mm3 (4.2-5.4); Red Cell Distribution Width 12.1 % (11.5-14.0); White Blood Count 7.6 K/mm3 (4.0-10.5)
--- OUTSIDE RECORDS SUMMARY | 2016-09-20 17:02 | XMS REPORT | Continuity of Care Document ---
:1985 Author Organization [facility] ([facility]) Address [address] [place] [address] Phone [phone] Care Team Providers Name Role Phone Provider, No-Primary Care Primary Care Provider Unavailable Source Comments This disclosure is being made pursuant to the Care Everywhere program, applicable federal and state laws, and may not contain all informaitonavailable regarding this patient.[facility] ([facility]) Active Allergies and Adverse Reactions Allergen [...]
[2016-09-20 17:11] LABS: Albumin * 2.5 gm/dl (3.4-5.0); Anion Gap 12.2 mmol/L (6.8-13.8); Bilirubin, Total 0.8 mg/dL (0.0-1.1); Ca. Corrected For Albumin 9.5 mg/dL (8.4-10.2); Calcium * 8.6 mg/dL (7.9-10.9); Carbon Dioxide 25.8 mmol/L (24-32.6); Total Protein 6.4 gm/dL (6.2-8.2)
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
[2016-09-20] MEDS ORDERED: HYDROmorphone HCL 1 MG/ML DISP.SYRIN IM ONE (18:31)
[2016-09-20] MEDS ORDERED: HYDROmorphone HCL 1 MG/ML DISP.SYRIN ONE (18:32)
[2016-09-20] MEDS ORDERED: HYDROmorphone HCL 1 MG/ML DISP.SYRIN IV ONE (18:48)
[2016-09-20 19:05] LABS: Urine Bilirubin Negative (NEGATIVE); Urine Blood Negative /ul (NEGATIVE); Urine Ketone 15 mg/dL (NEGATIVE); Urine Nitrite Negative (NEGATIVE); Urine Protein Negative (NEGATIVE)
--- OUTSIDE RECORDS SUMMARY | 2016-09-20 19:08 | XMS REPORT | Continuity of Care Document ---
:1985 Author Organization [facility] ([facility]) Address [address] [place] [address] Phone [phone] Care Team Providers Name Role Phone Provider, No-Primary Care Primary Care Provider Unavailable Source Comments This disclosure is being made pursuant to the Care Everywhere program, applicable federal and state laws, and may not contain all informaitonavailable regarding this patient.[facility] ([facility]) Active Allergies and Adverse Reactions Allergen Noted [...]
[2016-09-20 19:12] LABS: Urine Appearance Clear; Urine Color Yellow
[2016-09-20 19:13] LABS: Urine Bacteria 1+; Urine RBC None Seen /hpf (0-5); Urine WBC 0-5 /hpf (0-5)
[2016-09-20 19:15] LABS: Amylase * 45 U/L (25-115); Lipase 173 U/L (73-393)
[2016-09-20 19:31] LABS: Cocaine Ur Negative (NEGATIVE); Urine Barbiturate Negative (NEGATIVE); Urine Benzodiazepines Negative (NEGATIVE); Urine PCP Negative (NEGATIVE); Urine THC Negative (NEGATIVE)
[2016-09-20 19:32] LABS: Urine Opiates Positive (NEGATIVE)
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
[2016-09-20] MEDS ORDERED: POTASSIUM CHLORIDE 20 MEQ TABLET.SA PO ONE (22:24)
[2016-09-20] MEDS ORDERED: ACETAMINOPHEN 500 MG TABLET PO PRN (22:25)
[2016-09-20] MEDS ORDERED: IBUPROFEN 800 MG TABLET PO PRN (22:25)
[2016-09-20] MEDS ORDERED: POTASSIUM CHLORIDE 20 MEQ in NORMAL SALINE 1,000 ML IV SCH (22:30)
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
[2016-09-20] MEDS: oxyCODONE HCL/ACETAMINOPHEN 1 TAB TABLET PO PRN (23:12)
[2016-09-21] MEDS: HYDROmorphone HCL 1 MG/ML DISP.SYRIN IV PRN ×2 (00:37→04:39)
[2016-09-21 06:04] LABS: Anion Gap 12.5 mmol/L (6.8-13.8); BUN/Creatinine Ratio 2.2 (9.0-21.6); Blood Urea Nitrogen 1 mg/dL (3-23); Calcium * 8.3 mg/dL (7.9-10.9); Carbon Dioxide 25.3 mmol/L (24-32.6); Chloride 110 mmol/L (97-106); Glucose * 91 mg/dL (70-110); Potassium 3.8 mmol/L (3.4-4.6); Sodium 144 mmol/L (132-142)
[2016-09-21] MEDS: oxyCODONE HCL/ACETAMINOPHEN 1 TAB TABLET PO PRN (07:54)
[2016-09-21 08:12] LABS: Hematocrit 26.4 % (37.0-47.0); Hemoglobin 9.2 gm/dL (12.5-16.0); Mean Cell Volume 89.5 fl (78-100); Mean Corpuscular Hemoglobin 31.2 pg (27-31); Mean Corpuscular Hgb Conc 34.8 g/dl (32-36); Mean Platelet Volume 11.3 fl (6.0-9.5); Neutrophil # 3.2 K/mm3 (1.3-6.0); Neutrophil % 58.5 % (42-75.0); Platelet Count 153 K/mm3 (150-450); Red Blood Count 2.95 M/mm3 (4.2-5.4); Red Cell Distribution Width 12.3 % (11.5-14.0); White Blood Count 5.5 K/mm3 (4.0-10.5)
[2016-09-21 08:19] LABS: Amylase * 38 U/L (25-115); Lipase 169 U/L (73-393)
[2016-09-21] MEDS ORDERED: SERTRALINE HCL 50 MG TABLET PO SCH (09:00)
[2016-09-21 12:23] VITALS: BP 116/69
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
== END 2016-09-21 15:45 | disposition home or self-care (01) ==
LOC: ER 16:23 → UNDOADMOB 19:03 → MS 19:03
PROVIDERS: ADMIT Nurse Practitioner; ATTEND Internal Medicine
DX: K85.30 Drug induced acute pancreatitis without necrosis or infection (principal); S20.212A Contusion of left front wall of thorax, initial encounter; S50.02XA Contusion of left elbow, initial encounter; E04.1 Nontoxic single thyroid nodule; E87.6 Hypokalemia; J90 Pleural effusion, not elsewhere classified; Z87.891 Personal history of nicotine dependence; F32.9 Major depressive disorder, single episode, unspecified; V47.0XXA Car driver injured in collision with fixed or stationary object in nontraffic accident, initial encounter; W22.11XA Striking against or struck by driver side automobile airbag, initial encounter; Y92.410 Unspecified street and highway as the place of occurrence of the external cause
CPT/HCPCS: 36415; 70450; 71260; 72125; 74177; 80048; 80053; 80307; 81001; 82150; 83690; 84703; 85025; 96365; 96366; 96374; 96375; 96376; 99284; G0378; G0481